=== PATIENT | female | born 1950 | race Caucasian/White ===

== ENCOUNTER → 2017-09-18 | Outpatient (CLI) | payer OTHER | END | disposition home or self-care (01) | LOC: NM 07:57 | DX: R07.9 Chest pain, unspecified (principal) | CPT/HCPCS: 78452; 93017; 93306; 96374; 96376; A9500 ==

== ENCOUNTER → 2019-05-20 | Outpatient (CLI) | payer OTHER ==
--- NOTE | 2019-05-20 11:56 | CARD ---
MR#: [id number] Date of Study: 05/20/2019 Ordering Physician: HUMA TEJEDA, Referring Physician: HUMA TEJEDA, Tech: APPROVED REPORT EXAM: Two-dimensional and M-mode echocardiogram with Doppler and color Doppler. Other Information Quality : AverageHR: 64bpm INDICATION Dyspnea 2D DIMENSIONS RVDd2.7 (2.9-3.5cm)Left Atrium(2D)3.9 (1.6-4.0cm) IVSd1.0 (0.7-1.1cm)Aortic Root(2D)1.7 (2.0-3.7cm) LVDd4.9 (3.9-5.9cm)LVOT Diameter1.9 (1.8-2.4cm) PWd0.9 (0.7-1.1cm)LVDs3.4 (2.5-4.0cm) FS (%) 30.7 %SV64.3 ml LVEF(%)58.2 (>50%) Aortic Valve AoV Peak Naseem.146.7cm/sAoV VTI31.1cm AO Peak GR.8.6mmHgLVOT Peak Naseem.123.7cm/s AO Mean GR.4mmHgAVA (VMAX)2.30cm2 Mitral Valve MV E Mfoddsae10.1cm/sMV DECEL LJIU127la MV A Werpxbxd41.1cm/sE/A Ratio1.1 Pulmonary Valve PV Peak Nonxdlei51.8cm/s Tricuspid Valve RAP [id number] Pulmonary Vein S1 Pokwrtxm02.7cm/sD2 Wtmhmmqe19.2cm/s LEFT VENTRICLE The left ventricle is normal size. There is normal left ventricular wall thickness. The left ventricu lar systolic function is normal and the ejection fraction is within normal range. The Ejection Fracti on is 55-60%. There is normal LV segmental wall motion. Transmitral Doppler flow pattern is Grade II- pseudonormal filling dynamics. RIGHT VENTRICLE The right ventricle is normal size. There is normal right ventricular wall thickness. The right ventr icular systolic function is normal. ATRIA The left atrium size is normal. The right atrium size is normal. The interatrial septum is intact wit h no evidence for an atrial septal defect or patent foramen ovale as noted on 2-D or Doppler imaging. AORTIC VALVE The aortic valve is thickened but opens well. Doppler and Color Flow revealed trace aortic regurgitat ion. There is no significant aortic valvular stenosis. MITRAL VALVE The mitral valve is normal in structure and function. There is no evidence of mitral valve prolapse. There is no mitral valve stenosis. Doppler and Color-flow revealed trace mitral regurgitation. TRICUSPID VALVE The tricuspid valve is normal in structure and function. Doppler and Color Flow revealed trace tricus pid regurgitation. There is no tricuspid valve stenosis. PULMONIC VALVE The pulmonic valve is not well visualized. Doppler and Color Flow revealed trace to mild pulmonic marisol vular regurgitation. GREAT VESSELS The aortic root is normal in size. The ascending aorta is normal in size. The IVC is normal in size a nd collapses >50% with inspiration. PERICARDIAL EFFUSION There is no pleural effusion. There is a trace to small pericardial effusion with no hemodynamic sign ificance. Critical Notification Critical Value: No <Conclusion> The left ventricle is normal size. The left ventricular systolic function is normal and the ejection fraction is within normal range. The Ejection Fraction is 55-60%. There is no significant aortic valvular stenosis. Doppler and Color Flow revealed trace aortic regurgitation. Doppler and Color-flow revealed trace mitral regurgitation. Doppler and Color Flow revealed trace tricuspid regurgitation. Signed by : Huma Tejeda MD Electronically Approved : 05/20/2019 11:55:35
== END | disposition home or self-care (01) ==
LOC: ECHO 10:54
PROVIDERS: ATTEND Internal Medicine Cardiovascular Disease
DX: I37.8 Other nonrheumatic pulmonary valve disorders (principal); I31.3 Pericardial effusion (noninflammatory)
CPT/HCPCS: 93306

== ENCOUNTER → 2020-12-31 | Outpatient (CLI) | payer MEDICARE ==
--- NOTE | 2020-12-31 16:57 | CARD ---
MR#: [id number] Date of Study: 12/31/2020 Ordering Physician: HUMA FLORES, Referring Physician: HUMA FLORES, Tech: Tara Noble [facility] APPROVED REPORT EXAM: Two-dimensional and M-mode echocardiogram with Doppler and color Doppler. Other Information Quality : Technically LimitedHR: 75bpm Rhythm : NSR INDICATION Dyspnea 2D DIMENSIONS RVDd2.0 (2.9-3.5cm)Left Atrium(2D)3.5 (1.6-4.0cm) IVSd0.9 (0.7-1.1cm)Aortic Root(2D)3.1 (2.0-3.7cm) LVDd4.5 (3.9-5.9cm)LVOT Diameter2.0 (1.8-2.4cm) PWd0.9 (0.7-1.1cm)LVDs3.0 (2.5-4.0cm) FS (%) 33.0 %SV56.6 ml LVEF(%)61.7 (>50%) Aortic Valve AoV Peak Naseem.162.8cm/sAoV VTI30.4cm AO Peak GR.10.6mmHgAO Mean GR.5mmHg AI P 1/2 [id number] Mitral Valve MV E Pdirbkrb88.6cm/sMV DECEL EYZH843am MV A Ptiyjeiv72.4cm/sE/A Ratio0.9 Pulmonary Valve PV Peak Zgmwxlfi104.3cm/s Tricuspid Valve TR P. Prkbxwqm869xw/sTR Peak Gr.23mmHg LEFT VENTRICLE The left ventricle is normal size. There is normal left ventricular wall thickness. The left ventricu lar systolic function is normal and the ejection fraction is within normal range. Estimated ejection fraction 55-60%. There is normal LV segmental wall motion. Transmitral Doppler flow pattern is Grade I-abnormal relaxation pattern. RIGHT VENTRICLE The right ventricle is normal size. There is normal right ventricular wall thickness. The right ventr icular systolic function is normal. ATRIA The left atrium size is normal. The right atrium size is normal. The interatrial septum is intact wit h no evidence for an atrial septal defect or patent foramen ovale as noted on 2-D or Doppler imaging. AORTIC VALVE The aortic valve is normal in structure and function. Doppler and Color Flow revealed mild aortic reg urgitation. There is no significant aortic valvular stenosis. MITRAL VALVE The mitral valve is normal in structure and function. There is no evidence of mitral valve prolapse. There is no mitral valve stenosis. Doppler and Color-flow revealed trace to mild mitral regurgitation . TRICUSPID VALVE The tricuspid valve is normal in structure and function. Doppler and Color Flow revealed trace tricus pid regurgitation. Estimated PAP 26 mmHg. There is no tricuspid valve stenosis. PULMONIC VALVE Doppler and Color Flow revealed trace pulmonic valvular regurgitation. There is no pulmonic valvular stenosis. GREAT VESSELS The aortic root is normal in size. The ascending aorta is normal in size. The IVC is normal in size a nd collapses >50% with inspiration. PERICARDIAL EFFUSION There is no evidence of significant pericardial effusion. Critical Notification Critical Value: No <Conclusion> The left ventricular systolic function is normal and the ejection fraction is within normal range. E stimated ejection fraction 55-60%. There is normal LV segmental wall motion. Doppler and Color Flow revealed mild aortic regurgitation. Signed by : Mauro Browne, Electronically Approved : 12/31/2020 16:57:33
== END ==
LOC: ECHO 13:50
PROVIDERS: ATTEND Internal Medicine Cardiovascular Disease
DX: I08.0 Rheumatic disorders of both mitral and aortic valves (principal)
CPT/HCPCS: 93306

== ENCOUNTER → 2021-01-20 | Outpatient (CLI) | payer MEDICARE ==
--- NOTE | 2021-01-20 15:16 | RAD ---
EXAM: Bilateral lower extremity venous Doppler with venous mapping and reflux analysis. HISTORY: Bilateral lower extremity pain/swelling. COMPARISON: None. FINDINGS: Grayscale and Doppler analysis of the both lower extremity deep venous systems was performe d with graded compression and augmentation. The common femoral, greater saphenous, superficial femora l, popliteal and calf veins were assessed. There is no evidence of deep venous thrombosis. A subcutaneous varix is associated with the distal le ft greater saphenous vein. Subcutaneous edema is noted. The right greater saphenous vein demonstrates <1 seconds reflux proximally. There is no reflux more d istally. It measures 6.5 mm proximally and the 7.3 mm distally. The left greater saphenous vein demonstrates 2.4-2.9 seconds reflux throughout. It measures 8.7 mm pr oximally, 6.1-7.6 mm in the thigh, and 0.32-0.57 mm more distally. The right lesser saphenous vein demonstrates 1.4-2.4 seconds reflux throughout. It measures 5.9 mm pr oximally and 2.5 mm distally. The left lesser saphenous vein demonstrates 2.3-3.0 seconds reflux throughout. It measures 5.5 mm pro ximally and 3.3 mm distally. IMPRESSION: 1. No evidence of deep venous thrombosis. 2. Positive for venous reflux within both lesser saphenous veins and the left greater saphenous vein. 3. Mapping as above and her the worksheets. Electronically signed by: Trinh Dewitt MD (01/20/2021 3:13 PM) [facility]
== END ==
LOC: US 12:36
PROVIDERS: ATTEND Internal Medicine Cardiovascular Disease
DX: I87.1 Compression of vein (principal); M79.89 Other specified soft tissue disorders
CPT/HCPCS: 93970